=== PATIENT | female | born 1975 | race Caucasian/White ===

== ENCOUNTER 2018-04-14 10:21 | Emergency (ER) | payer MEDICAID ==
[~2018-04-14] VITALS: Ht 160 cm; Wt 82.6 kg
[2018-04-14 10:30] VITALS: BP 144/95
[2018-04-14] MEDS ORDERED: FAMOTIDINE 20 MG TAB PO ONE (10:50)
[2018-04-14] MEDS ORDERED: ONDANSETRON 4 MG ODT PO ONE (10:50)
[2018-04-14 11:31] LABS: BASOPHILS % (AUTO) 0.3 % (0.0-2.0); EOSINOPHILS # (AUTO) 0.3 K/uL (0-0.4); EOSINOPHILS % (AUTO) 4.6 % (0.0-4.0); HEMATOCRIT 35.1 % (36-48); LYMPHOCYTES # (AUTO) 2.8 K/uL (2.5-16.5); MEAN CORPUSCULAR HEMOGLOBIN 24 pg (27-31); MEAN CORPUSCULAR HGB CONC 31 g/dL (33-37); MEAN CORPUSCULAR VOLUME 76.9 fL (80-94); MONOCYTES # (AUTO) 0.6 K/uL (0.8-1.0); MONOCYTES % (AUTO) 7.8 % (1.7-9.3); NEUTROPHILS # (AUTO) 3.4 K/uL (1.8-7.7); NEUTROPHILS % (AUTO) 47.3 % (42.2-75.2); PLATELET COUNT (AUTO) 195 K/uL (140-450); RED BLOOD CELL COUNT(AUTO) 4.57 MIL/uL (4.20-5.40); RED CELL DISTRIBUTION WIDTH 17.3 % (11.6-13.7); WHITE BLOOD COUNT (AUTO) 7.1 K/uL (4.8-10.8)
[2018-04-14 11:34] LABS: ALBUMIN 3.7 g/dL (3.4-5.0); ANION GAP 9.4 (8-16); CARBON DIOXIDE 31.9 mmol/L (21-32); CREATININE 0.7 mg/dL (0.6-1.3); POTASSIUM 4.3 mmol/L (3.5-5.1); TOTAL BILIRUBIN 0.7 mg/dL (0.0-1.0)
[2018-04-14 14:45] VITALS: BP 104/68
== END 2018-04-14 14:44 | disposition home or self-care (01) ==
LOC: MED 10:21
DX: R10.13 Epigastric pain (principal); R11.10 Vomiting, unspecified; R63.0 Anorexia
CPT/HCPCS: 36415; 76705; 80053; 81025; 84702; 85025; 99284; Q0092; Q0162

== ENCOUNTER 2020-02-24 13:58 | Emergency (ER) | payer MEDICAID ==
[~2020-02-24] VITALS: Ht 157.5 cm; Wt 91.6 kg
[2020-02-24 14:20] VITALS: BP 121/78
--- NOTE | 2020-02-24 14:21 | NUR ---
Patient ambulated with steady gait to bed 5.
--- NOTE | 2020-02-24 14:30 | NUR ---
C/O L ANKLE PAIN AFTER TRIPPING/FALLING ON FRIDAY. PT STATES SHE ALSO REINJURED HER ANKLE THIS MORNING AFTER HAVING A SYNCOPAL EPISODE AND FALLING. PT ALSO C/O NUMBNESS/TINGLING TO BUE. PT A&O X4, PERRL 3MM, BUE/BLE STANDARDS ENGINEER STRENGTH EQUAL. BED IN LOW POSITION/ SIDE RAIL UP X1
--- NOTE | 2020-02-24 15:00 | NUR ---
xray at bedside
[2020-02-24 16:13] LABS: BASOPHILS % (AUTO) 0.4 % (0.0-2.0); EOSINOPHILS # (AUTO) 0.3 K/uL (0-0.4); EOSINOPHILS % (AUTO) 3.2 % (0.0-4.0); HEMATOCRIT 33.5 % (36-48); HEMOGLOBIN 10.8 g/dL (12.0-16.0); LYMPHOCYTES # (AUTO) 3.1 K/uL (2.5-16.5); MEAN CORPUSCULAR HEMOGLOBIN 25 pg (27-31); MEAN CORPUSCULAR HGB CONC 32 g/dL (33-37); MEAN CORPUSCULAR VOLUME 77.7 fL (80-94); MONOCYTES # (AUTO) 0.8 K/uL (0.8-1.0); MONOCYTES % (AUTO) 8.6 % (1.7-9.3); NEUTROPHILS # (AUTO) 5.2 K/uL (1.8-7.7); NEUTROPHILS % (AUTO) 54.8 % (42.2-75.2); PLATELET COUNT (AUTO) 189 K/uL (140-450); RED BLOOD CELL COUNT(AUTO) 4.32 MIL/uL (4.20-5.40); RED CELL DISTRIBUTION WIDTH 17.4 % (11.6-13.7); WHITE BLOOD COUNT (AUTO) 9.5 K/uL (4.8-10.8)
[2020-02-24 16:58] LABS: ALBUMIN 3.9 g/dL (3.4-5.0); ANION GAP 10.1 (8-16); CARBON DIOXIDE 30.7 mmol/L (21-32); CREATININE 0.8 mg/dL (0.6-1.3); POTASSIUM 3.8 mmol/L (3.5-5.1); TOTAL BILIRUBIN 0.5 mg/dL (0.0-1.0)
[2020-02-24 17:41] VITALS: BP 124/72
--- NOTE | 2020-02-24 17:41 | NUR ---
Patient discharged with v/s stable. Written and verbal after care instructions given and explained in occitan and translated by myself. Patient alert, oriented and verbalized understanding of instructions. Patient given copies of lab results and imaging for follow up. Ambulatory with steady gait. All questions addressed prior to discharge. ID band removed. Patient advised to follow up with PMD. Rx of Motrin 600mg given. Patient educated on indication of medication including possible reaction and side effects. Opportunity to ask questions provided and answered.
== END 2020-02-24 17:41 | disposition home or self-care (01) ==
LOC: MED 13:58
DX: S93.401A Sprain of unspecified ligament of right ankle, initial encounter (principal); R55 Syncope and collapse; F41.8 Other specified anxiety disorders; X58.XXXA Exposure to other specified factors, initial encounter; Y93.89 Activity, other specified; Y92.89 Other specified places as the place of occurrence of the external cause; Y99.8 Other external cause status
CPT/HCPCS: 36415; 71045; 73610; 80053; 85025; 93005; 99285

== ENCOUNTER 2020-05-27 12:09 | Emergency (ER) | payer MEDICAID ==
[~2020-05-27] VITALS: Ht 157.5 cm; Wt 87.5 kg
--- NOTE | 2020-05-27 12:22 | NUR ---
PT AMBULATED TO ER BED 9.
[2020-05-27 12:26] VITALS: BP 119/68
[2020-05-27] MEDS ORDERED: KETOROLAC 30 MG/ML VIAL IM ONE (12:35)
--- NOTE | 2020-05-27 12:35 | NUR ---
DR HAYWOOD AT BEDSIDE FOR EVALUATION
--- NOTE | 2020-05-27 12:45 | NUR ---
PT AMBULATED TO RESTROOM WITH STEADY GAIT FOR URINE SAMPLE
--- NOTE | 2020-05-27 12:50 | NUR ---
45 Y/O FEMALE C/O BACK PAIN X1WEEK. TOOK TYNENOL WITH NO RELIEF, NOW HAS WORSENED X2DAYS. PT STATES PAIN 10/10 THAT IS STONG, PULSING AND SHARP THAT RADIATES TO LEFT LEG AND IS WORSE WITH AMBULATION. PT ALSO STATES RIGHT HAND NUMBNESS, DENIES FEVER/CHILLS, DENIES N/V. PT DENIES TRAUMA. PT IS A&O X4 WITH EVEN AND UNLABORED RESPRIATIONS. PT IS SITTING IN CHAIR NEXT TO SON. DENIES PMH NKA
[2020-05-27] MEDS ORDERED: DIAZ5TAB7 PO (13:32)
[2020-05-27] MEDS ORDERED: NAPR-54 PO (13:32)
[2020-05-27 13:46] VITALS: BP 119/68
--- NOTE | 2020-05-27 13:47 | NUR ---
Patient discharged with v/s stable. Written and verbal after care instructions given and explained. Patient alert, oriented and verbalized understanding of instructions. Ambulatory with steady gait. All questions addressed prior to discharge. ID band removed. Patient advised to follow up with PMD. Rx of NAPROSYN 500MG BID PRN PAIN, AND VALIUM 5MG TID PRN PAIN given. Patient educated on indication of medication including possible reaction and side effects. Opportunity to ask questions provided and answered.
== END 2020-05-27 13:47 | disposition home or self-care (01) ==
LOC: MED 12:09
DX: M54.5 Low back pain (principal); M79.605 Pain in left leg
CPT/HCPCS: 81002; 81025; 96372; 99283; J1885

== ENCOUNTER 2021-01-24 18:27 | Emergency (ER) | payer MEDICAID ==
[~2021-01-24 18:27] MED LIST: DIAZ5TAB7 PO; NAPR-54 PO
== END 2021-01-24 19:22 | disposition home or self-care (01) ==
LOC: MED 18:27
DX: Z53.21 Procedure and treatment not carried out due to patient leaving prior to being seen by health care provider (principal)

== ENCOUNTER 2021-01-26 22:09 | Emergency (ER) | payer MEDICAID ==
[~2021-01-26] VITALS: Ht 157.5 cm; Wt 79.4 kg
[2021-01-26 22:35] VITALS: BP 108/50
--- NOTE | 2021-01-26 22:38 | NUR ---
to lobby a/w bed ambulatory
[2021-01-26] MEDS ORDERED: NACL 0.9% 1,000 ML IV ONE (23:35)
[2021-01-26] MEDS ORDERED: KETOROLAC 30 MG/ML VIAL IVP ONE (23:35)
[2021-01-26 23:52] LABS: APPEARANCE,URINE CLEAR (CLEAR); BASOPHILS % (AUTO) 0.3 % (0.0-2.0); BILIRUBIN,URINE NEGATIVE (NEGATIVE); BLOOD, URINE 2+ (NEGATIVE); COLOR,URINE YELLOW (YELLOW); EOSINOPHILS # (AUTO) 0.4 K/uL (0-0.4); EOSINOPHILS % (AUTO) 5.2 % (0.0-4.0); HEMATOCRIT 36.3 % (36-48); HEMOGLOBIN 11.9 g/dL (12.0-16.0); LEUKOCYTE ESTERASE ,URINE TRACE (NEGATIVE); LYMPHOCYTES # (AUTO) 3.4 K/uL (2.5-16.5); LYMPHOCYTES % (AUTO) 47.5 % (20.5-51.1); MEAN CORPUSCULAR HEMOGLOBIN 29 pg (27-31); MEAN CORPUSCULAR HGB CONC 33 g/dL (33-37); MEAN CORPUSCULAR VOLUME 88.3 fL (80-94); MONOCYTES # (AUTO) 0.7 K/uL (0.8-1.0); MONOCYTES % (AUTO) 9.3 % (1.7-9.3); NEUTROPHILS # (AUTO) 2.7 K/uL (1.8-7.7); NEUTROPHILS % (AUTO) 37.7 % (42.2-75.2); NITRITE, URINE NEGATIVE (NEGATIVE); PLATELET COUNT (AUTO) 183 K/uL (140-450); RED BLOOD CELL COUNT(AUTO) 4.11 MIL/uL (4.20-5.40); RED CELL DISTRIBUTION WIDTH 15.6 % (11.6-13.7); UGLUCOSE NEGATIVE (NEGATIVE); WHITE BLOOD COUNT (AUTO) 7.1 K/uL (4.8-10.8)
[2021-01-26] MEDS ORDERED: cefTRIAXone 1,000 MG VIAL ONE (23:58)
[2021-01-27 00:21] LABS: RBC,URINE 0-5 /HPF (0-5)
[2021-01-27 00:28] LABS: ALBUMIN 3.7 g/dL (3.4-5.0); ANION GAP 14.8 (8-16); CARBON DIOXIDE 25.3 mmol/L (21-32); CREATININE 1.2 mg/dL (0.6-1.3); POTASSIUM 4.1 mmol/L (3.5-5.1); TOTAL BILIRUBIN 0.4 mg/dL (0.0-1.0)
[2021-01-27] MEDS ORDERED: NAPR-54 PO (01:31)
[2021-01-27] MEDS ORDERED: CIPR500T4 PO (01:31)
[2021-01-27 01:35] VITALS: BP 108/50
--- NOTE | 2021-01-27 01:36 | NUR ---
Patient discharged with v/s stable. Written and verbal after care instructions given and explained. Patient verbalized understanding. Ambulatory with steady gait. All questions addressed prior to discharge. Advised to follow up with PMD.
--- NOTE | 2021-01-29 10:49 | NUR ---
LATE ENTRY- IV FLUIDS NORMAL SALINE DISCONTINUED AT 0136.
== END 2021-01-27 01:36 | disposition home or self-care (01) ==
LOC: MED 22:09
DX: N10 Acute pyelonephritis (principal); Z79.899 Other long term (current) drug therapy
CPT/HCPCS: 36415; 80053; 81001; 85025; 87086; 96365; 96375; 99284; J0696; J1885; J7030; 81002